=== PATIENT | female | born 1960 | race American Indian/Alaskan Native ===

== ENCOUNTER → 2024-12-16 00:24 | Outpatient (CLI) | payer MEDICAID, SELFPAY ==
--- NOTE | 2024-12-16 14:33 | DI.CT_ITS ---
Exam(s) CT SINUS WO EXAM: CT SINUS WO CLINICAL HISTORY: chronic ear fullness, left nasal polyp on exam,CHRONIC RHINITIS,J33.9,J31.0. Evaluate for sinusitis. TECHNIQUE: Imaging Protocol: Axial computed tomography images with coronal and sagittal reformatted images were created and reviewed. COMPARISON: No exams were available for comparison FINDINGS: Frontal sinuses: Normally aerated. Ethmoid air cells: Normally aerated. Maxillary sinuses: Minimal mucosal thickening at the floor of the left maxillary sinus. Sphenoid sinuses: Normally aerated. Ostiomeatal complexes: Patent. Nasal cavity: Septum is midline. Visualized regional soft tissues: No acute findings. Orbits: Unremarkable. Bones: Unremarkable. Mastoid Air Cells: Normally aerated. Visualized portions of the brain: Unremarkable as visualized. IMPRESSION: Minimal mucosal thickening of the left maxillary sinus. RADIATION DOSE DELIVERED: Total DLP DATA REPOSITORY: All CT scans at this facility are submitted to the National Radiology Data Registry (NRDR) Dose Index Registry (DIR) with the [employer] ([employer]). RADIATION OPTIMIZATION: All CT scans at this facility use at least one of these dose optimization techniques: automated exposure control; mA and/or kV adjustment per patient size (includes targeted exams where dose is matched to clinical indication); or iterative reconstruction.
== END ==
PROVIDERS: PCP Registered Nurse; Visit Provider Registered Nurse Maternal Newborn
DX: J32.1 Chronic frontal sinusitis (principal); J33.9 Nasal polyp, unspecified
CPT/HCPCS: 70486